=== PATIENT | male | born 1945 | race Caucasian/White ===

== ENCOUNTER → 2018-02-25 | Emergency (ER) | payer MEDICARE, OTHER ==
[~2018-02-25] MED LIST: Donnatal Elixir 16.2 MG/5 ML UDCUP ONE; Ketorolac Tromethamine 30 MG/ML VIAL ONE; Lidocaine Viscous Sol 2% 15 ml UD Cup ONE; Mag-Al Plus 1200 MG/1200 MG/120 MG/30 ML UDCUP ONE; Ondansetron HCl/PF 4 MG/2 ML Vial ONE; Pantoprazole 40 MG VIAL ONE
[2018-02-25 03:19] LABS: #Basophils 0.1 thou/uL (0.0-0.2); #Eosinphils 0.2 thou/uL (0.0-0.7); #Lymphocytes 4.5 thou/uL (1.20-3.40); #Monocytes 0.7 thou/uL (0.11-0.59); %Basophils 1.3 % (0.0-1.0); %Eosinophils 1.7 % (0.0-10.0); %Lymphocytes 42.9 % (21.0-51.0); %Monocytes 6.9 % (0.0-10.0); %Neutrophils 47.2 % (42.0-75.0); Hemoglobin 16.6 g/dL (14.0-18.0); Mean Corpuscular HGB CONC 34.8 g/dL (32.0-36.0); Mean Corpuscular Hemoglobin 32.3 pg (27.0-31.0); Mean Corpuscular Volume 93.1 fl (80.0-94.0); Mean Platelet Volume 10.5 fL (7.4-10.4); Platelet Count 208 thou/uL (130-400); RBC Distribution Width 12.2 % (11.5-14.5); Red Blood Cell (RBC) Count 5.12 mill/uL (4.70-6.10); White Blood Cell (WBC) Count 10.5 thou/uL (4.8-10.8)
[2018-02-25 03:30] LABS: INR-International Normal Ratio 0.9; Prothrombin Time 12.8 SEC (12.0-14.7)
[2018-02-25 03:32] LABS: ALT (SGPT) 22 U/L (8-55); AST (SGOT) 31 U/L (5-34); Albumin 4.1 g/dL (3.4-4.8); Alkaline Phosphatase 72 U/L (40-150); Anion Gap 18 mmol/L (10-20); BUN (Urea Nitrogen) 25 mg/dL (8.4-25.7); Bilirubin, Total 0.6 mg/dL (0.2-1.2); Calc. Creatinine Clearance 0 mL/min (70-130); Calcium 9.2 mg/dL (7.8-10.44); Carbon Dioxide 23 mmol/L (23-31); Chloride 104 mmol/L (98-107); Estimated GFR-MDRD 40; Glucose 143 mg/dL (83-110); Lipase 16 U/L (8-78); Sodium 141 mmol/L (136-145)
[2018-02-25 03:33] LABS: Troponin I Less than 0.010 ng/mL (< 0.028)
[2018-02-25 03:34] LABS: Globulin 2.8 g/dL (2.4-3.5); Protein, Total 6.9 g/dL (5.8-8.1)
--- NOTE | 2018-02-25 08:44 | RAD ---
CHEST 1 VIEW: HISTORY: Chest pain. COMPARISON: None. FINDINGS: Lungs are clear. No pneumothorax or effusion. Cardiac silhouette and mediastinal contours are parveen l. IMPRESSION: No acute intrathoracic abnormality. POS: [facility]
== END ==
LOC: MADERS 02:47
DX: R07.89 Other chest pain (principal); R11.2 Nausea with vomiting, unspecified; N40.0 Benign prostatic hyperplasia without lower urinary tract symptoms; Z79.899 Other long term (current) drug therapy
CPT/HCPCS: 71045; 80053; 82150; 82553; 83690; 83880; 84484; 85025; 85610; 85730; 93005; 94760; 96374; 96375; C9113; J1885; J2405